=== PATIENT | male | born 2000 | race Hispanic/Latino ===

== ENCOUNTER 2023-03-11 18:09 | Inpatient (IN) | payer OTHER ==
[~2023-03-11] VITALS: Ht 165.1 cm; Wt 62.7 kg
[2023-03-11] MEDS ORDERED: ONDANSETRON 4MG INJ IVP ONE (19:00)
[2023-03-11] MEDS ORDERED: 0.9%NACL 1000ML 1,000 ML IV ONE ×2 (19:00→19:30)
[2023-03-11 19:20] LABS: BASOPHILS # (AUTO) 0.05 K/uL (0.00-0.20); BASOPHILS % (AUTO) 0.3 % (0.0-5.0); EOSINOPHILS # (AUTO) 0.63 K/uL (0.00-0.70); EOSINOPHILS % (AUTO) 3.9 % (0.0-8.0); HEMATOCRIT 46.7 % (42-54); IMMATURE GRANULOCYTE ABSOLUTE 0.04 K/uL (0-1); LYMPHOCYTES # (AUTO) 2.9 K/uL (1.0-4.8); LYMPHOCYTES % (AUTO) 18.2 % (21.0-51.0); MEAN CORPUSCULAR HGB CONC 34.3 g/dL (32.0-36.0); MEAN CORPUSCULAR VOLUME 90.5 fL (80-100); MONOCYTES # (AUTO) 1.1 K/uL (0.1-1.0); MONOCYTES % (AUTO) 6.7 % (3.0-13.0); NEUTROPHILS # (AUTO) 11.3 K/uL (1.8-7.7); NEUTROPHILS % (AUTO) 70.7 % (40.0-77.0); PLATELET COUNT (AUTO) 329 K/uL (130-400); RED BLOOD CELL COUNT(AUTO) 5.16 MIL/uL (4.50-6.20); RED CELL DISTRIBUTION WIDTH 12.9 % (11.0-15.5)
[2023-03-11] MEDS ORDERED: ZOSYN 3.375GM +NS 50ML IVPB ONE (19:30)
[2023-03-11 19:32] LABS: CREATININE 1.3 mg/dL (0.5-1.5); POTASSIUM 3.7 mmol/L (3.5-5.1)
[2023-03-11] MEDS ORDERED: IOHEXOL-350 75 ML VIAL IV ONE (19:34)
[2023-03-11 19:36] LABS: ALBUMIN 3.9 g/dL (3.5-5.0); BILIRUBIN,TOTAL 0.5 mg/dL (0.2-1.0); TOTAL PROTEIN, SERUM 8.4 g/dL (6.0-8.3)
[2023-03-11] MEDS ORDERED: DICYCLOMINE 20MG (10MG/ML) AMP IM STA (19:37)
[2023-03-11] MEDS ORDERED: HALOPERIDOL INJ 5 MG/ML VIAL IV SCH (20:00)
[2023-03-11] MEDS ORDERED: MORPHINE 2 MG SYG IVP ONE (20:30)
[2023-03-11] MEDS ORDERED: HYDROCORTISONE SOD SUCCINATE 100 MG/2 ML VIAL IV SCH (20:30)
[2023-03-11] MEDS ORDERED: ONDANSETRON 4MG INJ IV PRN (21:30)
[2023-03-11] MEDS: SOLU-MEDROL 40MG VIAL IVP SCH (21:30)
[2023-03-11] MEDS: LACTATED RINGERS 1000ML 1,000 ML IV SCH (21:42)
[2023-03-11] MEDS: CEFEPIME HCL 1 GM VIAL IVPB SCH (21:46)
[2023-03-11 22:21] VITALS: O2SAT 96
[2023-03-11 22:45] VITALS: BP 103/53; PULSE 62; RESP 18
[2023-03-11] MEDS ORDERED: TOFA5TAB PO (22:47)
[2023-03-12] MEDS ORDERED: MORPHINE 2 MG SYG IVP PRN (01:30)
[2023-03-12] MEDS: METRONIDAZOLE 500MG/100ML BAG 100 ML IVPB SCH ×2 (01:34→05:41)
[2023-03-12 01:38] LABS: APPEARANCE,URINE CLEAR (CLEAR); BILIRUBIN,URINE NEGATIVE (NEGATIVE); COLOR,URINE LIGHT-YELLOW (YELLOW); GLUCOSE, URINE (UA) NEGATIVE (NEGATIVE); KETONES,URINE 40 mg/dL (NEGATIVE); LEUKOCYTE ESTERASE ,URINE NEGATIVE Leu/uL (NEGATIVE); NITRATE,URINE NEGATIVE (NEGATIVE); OCCULT BLOOD,URINE NEGATIVE (NEGATIVE); PH,URINE 7.5 (5.0-8.0); PROTEIN,URINE 20 mg/dL (NEGATIVE); UROBILINOGEN,URINE 0.2 mg/dL (0.2-1.0)
[2023-03-12 01:39] LABS: ADD UA MICROSCOPIC YES
[2023-03-12 01:40] LABS: RBC,URINE 0-1 /HPF (0-1); WBC,URINE 0-1 /HPF (0-1)
[2023-03-12 03:43] LABS: HEMATOCRIT 39.8 % (42-54); MEAN CORPUSCULAR HEMOGLOBIN 30.5 pg (27.0-33.0); MEAN CORPUSCULAR HGB CONC 33.4 g/dL (32.0-36.0); MEAN CORPUSCULAR VOLUME 91.3 fL (80-100); RED BLOOD CELL COUNT(AUTO) 4.36 MIL/uL (4.50-6.20); RED CELL DISTRIBUTION WIDTH 12.8 % (11.0-15.5); WHITE BLOOD COUNT (AUTO) 12.3 K/uL (4.8-10.8)
[2023-03-12 03:56] LABS: INR 0.97 (0.85-1.15); PROTHROMBIN TIME 11.3 SEC (9.6-11.6)
[2023-03-12 03:57] LABS: PARTIAL THROMBOPLASTIN TIME 28.7 SEC (26.3-35.5)
[2023-03-12 04:00] VITALS: BP 110/55; PULSE 74; RESP 19
[2023-03-12 04:03] LABS: ALBUMIN 3.1 g/dL (3.5-5.0); BILIRUBIN,TOTAL 0.6 mg/dL (0.2-1.0); CREATININE 1.1 mg/dL (0.5-1.5); CRP QUANTITATIVE 15.6 mg/L (0.00-9.0); POTASSIUM 3.9 mmol/L (3.5-5.1); TOTAL PROTEIN, SERUM 6.7 g/dL (6.0-8.3)
[2023-03-12] MEDS: SOLU-MEDROL 40MG VIAL IVP SCH (05:41)
[2023-03-12] MEDS: LACTATED RINGERS 1000ML 1,000 ML IV SCH (07:30)
[2023-03-12 08:00] VITALS: BP 116/53; PULSE 68; RESP 16
[2023-03-12] MEDS ORDERED: PANTOPRAZOLE 40 MG/VIAL IVP SCH (09:00)
[2023-03-12] MEDS: CEFEPIME HCL 1 GM VIAL IVPB SCH (09:16)
== END 2023-03-12 09:10 | disposition left against medical advice (07) | DRG 387 ==
LOC: EDH 18:09 → EDHIP 18:10 → 4AH 22:45
PROVIDERS: ADMIT Hospitalist; ATTEND Hospitalist
DX: K51.911 Ulcerative colitis, unspecified with rectal bleeding (principal); D72.829 Elevated white blood cell count, unspecified; E86.0 Dehydration
CPT/HCPCS: 36415; 74177; 80053; 81001; 82270; 83690; 84145; 85025; 85027; 85610; 85651; 85730; 86140; 87040; C9113; G0378; J0500; J0692; J1630; J1720; J2270; J2405; J2543; J2920; J3490; J7030; Q9967